=== PATIENT | female | born 1985 | race Caucasian/White ===

== ENCOUNTER 2017-07-23 23:43 | Emergency (ER) | payer SELFPAY ==
[2017-07-24 00:09] VITALS: BP 126/77
--- NOTE | 2017-07-24 00:54 | ER Document Report ---
ED Medical Screen (RME) - General Chief Complaint: Chest Pressure Stated Complaint: CHEST PAIN Time Seen by Provider: 07/24/17 00:51 Mode of Arrival: Ambulatory Information source: Patient Notes: 11-year-old female presents to ED for grocery list of symptoms. She states she has had chest pain off and on for 2 weeks. Shortness of breath off and on for 2 months. Prolonged insomnia off and on for 2 weeks. Numbness into her arms for about 2 months. Indigestion with bloating 2 days. Nausea for 2 weeks with no vomiting. Hot and cold chills for 2 days. 2 aspirin at 1040. O2 sats 100% lungs clear respirations regular able to speak in full sentences. Patient is actually able to speak at length about her symptoms before needing to stop to take a breath. I have greeted and performed a rapid initial assessment of this patient. A comprehensive ED assessment and evaluation of the patient, analysis of test results and completion of medical decision making process will be conducted by an additional ED providers. TRAVEL OUTSIDE OF THE [place] IN LAST 30 DAYS: No - Related Data Allergies/Adverse Reactions: No Known Allergies Allergy (Verified 09/21/15 18:44) Physical Exam - Vital signs Vitals: Temp Pulse Resp BP Pulse Ox 98.4 F 81 18 126/77 H 100 07/23/17 23:48 07/23/17 23:48 07/23/17 23:48 07/23/17 23:48 07/23/17 23:48 Course - Vital Signs Vital signs: Temp Pulse Resp BP Pulse Ox 98.4 F 81 18 126/77 H 100 07/23/17 23:48 07/23/17 23:48 07/23/17 23:48 07/23/17 23:48 07/23/17 23:48
--- NOTE | 2017-07-24 10:02 | EKG REPORT ---
SEVERITY:- NORMAL ECG - SINUS RHYTHM : Confirmed by: Edinson Hampton 24-Jul-2017 10:01:26
== END 2017-07-24 02:35 | disposition left against medical advice (07) ==
LOC: ER 23:43
DX: R07.89 Other chest pain (principal); R06.02 Shortness of breath; G47.00 Insomnia, unspecified; K30 Functional dyspepsia; R11.0 Nausea; Z53.20 Procedure and treatment not carried out because of patient's decision for unspecified reasons
CPT/HCPCS: 93005; 93010; 99281

== ENCOUNTER → 2019-06-28 | Outpatient (CLI) | payer SELFPAY ==
--- NOTE | 2019-06-28 16:46 | RADIOLOGY REPORT (SQ) ---
EXAM DESCRIPTION: U/S [id number] TRNABD 1GES W/ODOP COMPLETED DATE/TIME: 06/28/2019 2:59 pm REASON FOR STUDY: Z34.81 ENCOUNTER FOR SUPRVSN OF NORMAL , FIRST TRIMESTER Z34.81 ENCOUNTE R FOR SUPRVSN OF NORMAL , FIRST TRIM COMPARISON: None. TECHNIQUE: Transabdominal static and realtime grayscale images acquired of the pelvis. Additional se lected spectral and color Doppler images recorded. All images stored on PACs. bHCG: Not available. CLINICAL DATES: FAHAD: 01/13/2020. EGA: 11 weeks 4 days LIMITATIONS: None. FINDINGS: FETUS: Single Living intrauterine . ULTRASOUND EGA: 11 weeks 0 days ULTRASOUND FAHAD: 01/17/2020 EFW: Not applicable less than 20 weeks. CRL: 4.09 cm FHR: 150 beats per minute. SURVEY: No visualized anomalies. AMNIOTIC FLUID: Adequate amount. PLACENTA: Not yet developed due to early gestation. SUBCHORIONIC BLEED: Question of a small 2.1 x 1.0 x 0.6 cm subchorionic bleed. SIZE OF BLEED: See above discussion. UTERUS: The uterus measures 13.5 x 8.9 x 6.7 cm. No masses. No anomalies. CERVICAL LENGTH: 2.7 cm. Closed. RIGHT ADNEXA: The right ovary measures 2.8 x 2.7 x 1.8 cm. Normal ovary with normal vascular flow. No adnexal free fluid. No adnexal masses. LEFT ADNEXA: The left ovary measures 3.1 x 2.6 x 1.8 cm. Normal ovary with normal vascular flow. No adnexal free fluid. No adnexal masses. FREE FLUID: None. OTHER: No other significant finding. IMPRESSION: LIVING INTRAUTERINE . EGA: 11 weeks 0 days. Small subchorionic bleed suggested. Trimester of : First trimester - 0 to 13 weeks. TECHNICAL DOCUMENTATION: JOB ID: [id number] [email or web address]- All Rights Reserved rev-10/30 Reading location - IP/workstation name: [email or web address]
== END ==
LOC: RAD 14:24
PROVIDERS: ATTEND Midwife
DX: Z34.81 Encounter for supervision of other normal pregnancy, first trimester (principal)
CPT/HCPCS: 76801